=== PATIENT | female | born 1990 | race Caucasian/White ===

== ENCOUNTER 2018-03-02 18:07 | Outpatient (CLI) | payer MEDICAID ==
[~2018-03-02] VITALS: Ht 162.6 cm; Wt 67.7 kg
[2018-03-02 18:22] VITALS: BP 102/57; PULSE 141; TEMP 98.2
[2018-03-02 18:30] VITALS: BP 97/57; PULSE 129
[2018-03-02 19:00] VITALS: BP 128/73; PULSE 92
[2018-03-02 19:25] VITALS: BP 112/73; PULSE 100
== END 2018-03-02 19:45 | disposition home or self-care (01) ==
LOC: LDRO 18:07 → EDBD 18:07 → LDRO 19:45
DX: O62.9 Abnormality of forces of labor, unspecified (principal); Z3A.39 39 weeks gestation of pregnancy

== ENCOUNTER 2018-03-03 23:33 | Outpatient (CLI) | payer MEDICAID ==
[~2018-03-03] VITALS: Ht 162.6 cm; Wt 67.7 kg
[2018-03-04 00:12] VITALS: BP 119/67; PULSE 83; TEMP 98.2
[2018-03-04 00:15] VITALS: BP 119/67; PULSE 83; TEMP 98.2
[2018-03-04] MEDS ORDERED: PROAIR HFA0.09 MG/AC IH (17:29)
== END 2018-03-04 02:40 | disposition home or self-care (01) ==
LOC: LDRO 23:33
DX: O62.9 Abnormality of forces of labor, unspecified (principal); Z3A.39 39 weeks gestation of pregnancy

== ENCOUNTER 2018-03-04 16:50 | Inpatient (IN) | payer MEDICAID ==
[~2018-03-04] VITALS: Ht 162.6 cm; Wt 67.7 kg
[2018-03-04] VITALS (26 sets, daily range): BP systolic 97–124; BP diastolic 52–90; PULSE 74–118; TEMP 97.7–98.1
[2018-03-04] MEDS ORDERED: PROAIR HFA0.09 MG/AC IH (17:29)
[2018-03-04 17:57] LABS: BASO # 0.1 (0.0-0.2); BASO % 0.3 % (0.0-2.0); EOS # 0.4 (0.0-0.7); EOS % 2.4 % (0-4.0); GRAN # 14.1 (1.4-6.5); GRAN % 77.9 % (42.2-75.2); HEMOGLOBIN 10.2 g/dl (12.5-16.0); LYMPH # 2.6 (1.2-3.4); LYMPH % 14.2 % (20.0-51.0); MEAN CELL VOLUME 85 fl (80.0-100.0); MEAN CORPUSCULAR HEMOGLOBIN 28 pg (27.0-31.0); MEAN CORPUSCULAR HGB CONC 33 g/dl (33.0-37.0); MEAN PLATELET VOLUME 11.8 fl (7.4-10.4); MONO # 0.9 (0.1-0.6); MONO % 4.7 % (1.7-9.3); PLATELET COUNT 256 K/mm3 (130-400); RED BLOOD COUNT 3.64 M/mm3 (4.10-5.30); REDCELL DISTRIBUTION WIDTH-CV 15.9 % (11.5-14.5)
[2018-03-04 17:58] LABS: HEMATOCRIT 30.9 % (37.0-47.0)
[2018-03-05] VITALS (25 sets, daily range): BP systolic 89–124; BP diastolic 55–78; PULSE 76–115; TEMP 97.5–98.5
[2018-03-06 00:28] VITALS: BP 103/54; PULSE 91; TEMP 97.9
[2018-03-06 06:47] VITALS: BP 110/73; PULSE 88; TEMP 97.6
[2018-03-06] MEDS ORDERED: IBU600 MG PO (10:21)
[2018-03-06] MEDS ORDERED: PERCOCET 325 MG1 TA2 PO (10:21)
== END 2018-03-06 13:25 | disposition home or self-care (01) | DRG 807 ==
LOC: LDRO 16:50 → LDR 17:15 → OB 03-05 07:36
PROVIDERS: Obstetrics & Gynecology
PROC: 10E0XZZ Delivery of Products of Conception, External Approach (ICD-10-PCS; principal; 2018-03-04)
PROC: 0UQMXZZ Repair Vulva, External Approach (ICD-10-PCS; 2018-03-04)
PROC: 0W8NXZZ Division of Female Perineum, External Approach (ICD-10-PCS; 2018-03-04)
DX: O70.0 First degree perineal laceration during delivery (principal); Z37.0 Single live birth; Z3A.40 40 weeks gestation of pregnancy
CPT/HCPCS: J2540; J2590; J2795; J7120

== ENCOUNTER 2018-04-14 11:13 | Emergency (ER) | payer MEDICAID ==
[~2018-04-14] VITALS: Ht 162.6 cm; Wt 59.1 kg
[~2018-04-14 11:13] MED LIST: IBU600 MG PO; PERCOCET 325 MG1 TA2 PO; PROAIR HFA0.09 MG/AC IH
[2018-04-14 11:16] VITALS: BP 121/69; TEMP 98.3
[2018-04-14 11:24] LABS: COLLECTION METHOD CLEAN CATCH
[2018-04-14 11:32] LABS: MUCOUS Present /lpf; PH 6 (5-8); URINE APPEARANCE Cloudy; URINE BACTERIA None Seen /hpf; URINE BILIRUBIN Negative (NEGATIVE); URINE BLOOD Negative (NEGATIVE); URINE COLOR Yellow; URINE GLUCOSE Negative (NEGATIVE); URINE KETONE Negative (NEGATIVE); URINE LEUKOCYTE ESTERASE 2+ (NEGATIVE); URINE NITRATE Negative (NEGATIVE); URINE PROTEIN(semi-quant) 2+ (NEGATIVE)
[2018-04-14] MEDS ORDERED: ADDERALL10 MG PO (11:34)
[2018-04-14 11:46] LABS: HEMOGLOBIN 12.5 g/dl (12.5-16.0); MEAN CELL VOLUME 85 fl (80.0-100.0); MEAN CORPUSCULAR HEMOGLOBIN 28 pg (27.0-31.0); MEAN CORPUSCULAR HGB CONC 33 g/dl (33.0-37.0); MEAN PLATELET VOLUME 10.6 fl (7.4-10.4); PLATELET COUNT 258 K/mm3 (130-400); RED BLOOD COUNT 4.49 M/mm3 (4.10-5.30); REDCELL DISTRIBUTION WIDTH-CV 16.9 % (11.5-14.5)
[2018-04-14 11:58] LABS: BILIRUBIN,TOTAL 0.2 mg/dL (0.0-1.0); C-REACTIVE PROTEIN 0.6 mg/dL (0.0-0.9); CALCIUM 8.5 mg/dL (8.4-10.2); CREATININE, serum 0.7 mg/dL (0.52-1.25); POTASSIUM 4.2 mmol/L (3.4-5.0)
[2018-04-14] MEDS ORDERED: MACROBID 1100 MG/CAP PO (12:11)
[2018-04-14 12:15] VITALS: PULSE 86
[2018-04-14 12:18] LABS: BAND 1 % (0-10); EOSINOPHIL 1 % (0-4); LYMPHOCYTE 35 % (20.0-51.0); METAMYELOCYTE 2 % (0-0); NEUTROPHILS 60 % (42.0-75.2); PLATELET ESTIMATE NORMAL (NORMAL)
[2018-04-14 12:19] LABS: STOMATOCYTE 1+
== END 2018-04-14 12:15 | disposition home or self-care (01) ==
LOC: COL.ER 11:13
PROVIDERS: Family Medicine
DX: N30.90 Cystitis, unspecified without hematuria (principal)

== ENCOUNTER 2018-06-04 19:38 | Emergency (ER) | payer MEDICAID ==
[~2018-06-04] VITALS: Ht 162.6 cm; Wt 59.1 kg
[~2018-06-04 19:38] MED LIST changes: +ADDERALL10 MG PO; +MACROBID 1100 MG/CAP PO
[2018-06-04 19:40] VITALS: TEMP 97.7
[2018-06-04] MEDS ORDERED: OMNICEF 300MG300 MG PO (20:10)
[2018-06-04 20:11] LABS: COLLECTION METHOD CLEAN CATCH
[2018-06-04 20:16] LABS: BASO # 0.1 (0.0-0.2); BASO % 0.4 % (0.0-2.0); EOS # 0.1 (0.0-0.7); EOS % 0.6 % (0-4.0); GRAN # 8.3 (1.4-6.5); GRAN % 72.6 % (42.2-75.2); HEMOGLOBIN 11.2 g/dl (12.5-16.0); LYMPH # 1.8 (1.2-3.4); LYMPH % 15.9 % (20.0-51.0); MEAN CELL VOLUME 87 fl (80.0-100.0); MEAN CORPUSCULAR HEMOGLOBIN 28 pg (27.0-31.0); MEAN CORPUSCULAR HGB CONC 33 g/dl (33.0-37.0); MEAN PLATELET VOLUME 10.8 fl (7.4-10.4); MONO # 1.2 (0.1-0.6); MONO % 10.1 % (1.7-9.3); PLATELET COUNT 227 K/mm3 (130-400); RED BLOOD COUNT 3.95 M/mm3 (4.10-5.30); REDCELL DISTRIBUTION WIDTH-CV 15.1 % (11.5-14.5)
[2018-06-04 20:19] LABS: HEMATOCRIT 34.4 % (37.0-47.0)
[2018-06-04 20:21] LABS: MUCOUS Present /lpf; PH 5 (5-8); URINE APPEARANCE Turbid; URINE BACTERIA Occasional /hpf; URINE BILIRUBIN Negative (NEGATIVE); URINE BLOOD Negative (NEGATIVE); URINE COLOR Yellow; URINE GLUCOSE Negative (NEGATIVE); URINE KETONE Negative (NEGATIVE); URINE LEUKOCYTE ESTERASE 3+ (NEGATIVE); URINE NITRATE Positive (NEGATIVE); URINE PROTEIN(semi-quant) 2+ (NEGATIVE); URINE UROBILINOGEN Negative (NEGATIVE)
[2018-06-04 20:32] LABS: BILIRUBIN,TOTAL 0.6 mg/dL (0.0-1.0); CALCIUM 8.3 mg/dL (8.4-10.2); CREATININE, serum 0.88 mg/dL (0.52-1.25); POTASSIUM 3.5 mmol/L (3.4-5.0); TOTAL PROTEIN 7.2 gm/dL (6.4-8.2)
[2018-06-04 20:59] VITALS: BP 94/62; PULSE 89
== END 2018-06-04 21:00 | disposition home or self-care (01) ==
LOC: COL.ER 19:38
PROVIDERS: Emergency Medicine
DX: N12 Tubulo-interstitial nephritis, not specified as acute or chronic (principal); F90.9 Attention-deficit hyperactivity disorder, unspecified type; F17.210 Nicotine dependence, cigarettes, uncomplicated; J45.909 Unspecified asthma, uncomplicated
CPT/HCPCS: A4216; J0696

== ENCOUNTER 2019-02-10 16:00 | Outpatient (RCR) | payer MEDICAID ==
[2019-02-03 15:18] VITALS: BP 114/76; PULSE 105; TEMP 97.8
[2019-02-03 17:19] VITALS: BP 120/76; PULSE 91
[2019-02-05 09:52] VITALS: BP 95/48; PULSE 90; TEMP 97.9
[~2019-02-10] VITALS: Ht 162.6 cm; Wt 66.0 kg
[~2019-02-10 16:00] MED LIST changes: +OMNICEF 300MG300 MG PO
[2019-02-10 17:00] VITALS: BP 101/52; PULSE 88; TEMP 98
== END 2019-02-10 17:40 | disposition home or self-care (01) ==
LOC: EUO 16:00
DX: Z79.899 Other long term (current) drug therapy (principal)
CPT/HCPCS: J2916; J7050

== ENCOUNTER → 2019-03-21 | Outpatient (CLI) | payer MEDICAID ==
[~2019-03-21] VITALS: Ht 162.6 cm; Wt 65.9 kg
--- NOTE | 2019-03-21 14:50 | NUR ---
PATIENT HERE FOR LABOR CHECK. PATIENT STATES SHE FEELS LIKE SHE IS HAVING LEAKING OF FLUID. PATIENT IN GOWN, PATIENT ON EFM, VITAL SIGNS OBTAINED, SVE 0-1 THICK ,POSTERIOR. PATIENT DENIES CONTRACTIONS OR BLEEDING.
[2019-03-21 15:29] VITALS: BP 108/66; PULSE 96; TEMP 97.7
[2019-03-21 15:30] VITALS: BP 108/66; PULSE 96; TEMP 97.7
[2019-03-21 16:00] VITALS: BP 97/61; PULSE 89
[2019-03-21 16:15] VITALS: BP 98/57; PULSE 80
== END ==
LOC: LDRO 15:06
DX: O42.913 Preterm premature rupture of membranes, unspecified as to length of time between rupture and onset of labor, third trimester (principal); Z3A.35 35 weeks gestation of pregnancy

== ENCOUNTER 2019-04-16 17:26 | Inpatient (IN) | payer MEDICAID ==
[2019-04-16] VITALS (22 sets, daily range): BP systolic 93–120; BP diastolic 51–79; PULSE 76–122; TEMP 97.4–98.3
[~2019-04-16] VITALS: Ht 162.6 cm; Wt 70.5 kg
--- NOTE | 2019-04-16 17:27 | NUR ---
1727-G2L1 39.[address] Garvey ambulatory to LR3. Patient reports sharp pain since am in upper abdomen irregularly. Denies LOF, reports light pink discharge since membarnes swept in office last visit. Reports some contractions last night but stopped. Dr. Hidalgo on unit. updated MD. Assessment complete. FHR reactive. VSS. MD orders to admit patient and start PEN for GBS + Protocol. 5-IV to right forearm, blood collected and sent to lab. LR infusing per orders 1800-Avis started, see EMAR. 1751-SVE by Dr. Hidalgo /2, AROM clear fluid. 1830-Reported off to. JHON Berry who assumes care of patient.
[2019-04-16 19:48] LABS: BASO # 0.1 (0.0-0.2); BASO % 0.4 % (0.0-2.0); EOS # 0.3 (0.0-0.7); EOS % 2.6 % (0-4.0); GRAN # 7.8 (1.4-6.5); GRAN % 70.4 % (42.2-75.2); HEMATOCRIT 34.3 % (37.0-47.0); HEMOGLOBIN 11.4 g/dl (12.5-16.0); LYMPH # 2.3 (1.2-3.4); LYMPH % 20.8 % (20.0-51.0); MEAN CELL VOLUME 89 fl (80.0-100.0); MEAN CORPUSCULAR HEMOGLOBIN 30 pg (27.0-31.0); MEAN CORPUSCULAR HGB CONC 33 g/dl (33.0-37.0); MEAN PLATELET VOLUME 11.7 fl (7.4-10.4); MONO # 0.6 (0.1-0.6); MONO % 5.4 % (1.7-9.3); PLATELET COUNT 215 K/mm3 (130-400); RED BLOOD COUNT 3.84 M/mm3 (4.10-5.30); REDCELL DISTRIBUTION WIDTH-CV 17.3 % (11.5-14.5)
[2019-04-16] MEDS ORDERED: MOTRIN 800800 MG/TAB PO (19:55)
--- NOTE | 2019-04-16 22:25 | NUR ---
2225- SVE 10CM PER DR. SAMUEL AT THIS TIME 2230- PATIENT IN LITHOTOMY AT THIS TIME, INSTRUCTED ON PUSHING. INTIATIAL PUSH COMPLDTED. VARIABLE DECELERAIONS WHILE PUSHING O2 10L VIA FACE MASK GIVEN, WITH IV FLUID BOLUS. PITOCIN TURNED OFF. DR. SAMUEL PRESENT AT BEDSIDE PUSHING WITH PATIENT. 224- CHARGE NURSE CALLED TO BEDSIDE FOR POTENTIAL SHOULDER DYSTOCIA. ARRIVED SOON AFTER. 224- SPONTANEOUS DELIVERY OF FATAL HEAD. TIGHT NUCHAL X1, CLAMPED AND CUT PER DR. SAMUEL DIANA PERINEUM. NO SHOULDER. 224- SPONTANEOUS DELIVERY OF VIABLE MALE AT THIS TIME. PLACED ON PATIENT'S CHEST, DRIED AND STIMULATED BY NURSERY NURSE Alphonse PENA RN. PINK AND CRYING. 2247- SPONTANEOUS DELIVERY OF INTACT PLACENTA, PITOCIN RAN AT 333CC/HR AT THIS TIME. 2249- 1ST DEGREE LACERATION REPAIRED PER DR. SAMUEL ALONG WITH SMALL 1.5CM VAGINAL CYST. RECONVERY STARTED. NO COMPLICATIONS. EBL 300CC. APGARS 8,9,9. EPIDURAL SHUT OFF. HUSAM FARFAN CALLED.
[2019-04-17] VITALS (7 sets, daily range): BP systolic 94–120; BP diastolic 55–76; PULSE 78–96; TEMP 97.7–98.4
[2019-04-17] MEDS ORDERED: MOTRIN 800800 MG/TAB PO (21:19)
[2019-04-17] MEDS ORDERED: PERCOCET 325 MG1 TA2 PO (21:20)
[2019-04-18 02:00] VITALS: BP 109/68; PULSE 79; TEMP 98.7
[2019-04-18 07:20] VITALS: BP 95/69; PULSE 71; TEMP 97.8
[2019-04-18] MEDS ORDERED: PERCOCET 325 MG1 TA2 PO (10:08)
[2019-04-18] MEDS ORDERED: ADDERALL10 MG PO (10:09)
== END 2019-04-18 10:25 | disposition home or self-care (01) | DRG 768 ==
LOC: LDRO 17:26 → OB 17:30 → LDR 17:30 → OB 04-17 01:00
PROVIDERS: ADMIT Obstetrics & Gynecology
PROC: 10E0XZZ Delivery of Products of Conception, External Approach (ICD-10-PCS; principal; 2019-04-16)
PROC: 0UBKXZZ Excision of Hymen, External Approach (ICD-10-PCS; 2019-04-16)
PROC: 0HQ9XZZ Repair Perineum Skin, External Approach (ICD-10-PCS; 2019-04-16)
PROC: 10907ZC Drainage of Amniotic Fluid, Therapeutic from Products of Conception, Via Natural or Artificial Opening (ICD-10-PCS; 2019-04-16)
DX: O99.62 Diseases of the digestive system complicating childbirth (principal); Z37.0 Single live birth; K92.9 Disease of digestive system, unspecified; O99.52 Diseases of the respiratory system complicating childbirth; O99.344 Other mental disorders complicating childbirth; O99.824 Streptococcus B carrier state complicating childbirth; K21.9 Gastro-esophageal reflux disease without esophagitis; J45.909 Unspecified asthma, uncomplicated; F41.9 Anxiety disorder, unspecified; F32.9 Major depressive disorder, single episode, unspecified; O99.334 Smoking (tobacco) complicating childbirth; O99.02 Anemia complicating childbirth; O69.1XX0 Labor and delivery complicated by cord around neck, with compression, not applicable or unspecified; N89.8 Other specified noninflammatory disorders of vagina; D64.9 Anemia, unspecified; Z3A.39 39 weeks gestation of pregnancy; O70.0 First degree perineal laceration during delivery
CPT/HCPCS: J2540; J2590; J2795; J7120

== ENCOUNTER 2019-06-07 17:10 | Emergency (ER) | payer MEDICAID ==
[~2019-06-07] VITALS: Ht 162.6 cm; Wt 56.8 kg
[~2019-06-07 17:10] MED LIST changes: +MOTRIN 800800 MG/TAB PO
[2019-06-07 17:58] LABS: BASO # 0.1 (0.0-0.2); BASO % 0.7 % (0.0-2.0); EOS # 0.3 (0.0-0.7); EOS % 4.2 % (0-4.0); GRAN # 4.3 (1.4-6.5); GRAN % 55.7 % (42.2-75.2); HEMATOCRIT 38.3 % (37.0-47.0); HEMOGLOBIN 12.5 g/dl (12.5-16.0); LYMPH # 2.6 (1.2-3.4); LYMPH % 34.4 % (20.0-51.0); MEAN CELL VOLUME 92 fl (80.0-100.0); MEAN CORPUSCULAR HEMOGLOBIN 30 pg (27.0-31.0); MEAN CORPUSCULAR HGB CONC 33 g/dl (33.0-37.0); MEAN PLATELET VOLUME 9.8 fl (7.4-10.4); MONO # 0.4 (0.1-0.6); MONO % 4.7 % (1.7-9.3); PLATELET COUNT 295 K/mm3 (130-400); RED BLOOD COUNT 4.16 M/mm3 (4.10-5.30); REDCELL DISTRIBUTION WIDTH-CV 13.8 % (11.5-14.5)
[2019-06-07 18:09] LABS: ALBUMIN 4.3 gm/dL (3.5-5.0); BILIRUBIN,TOTAL 0.7 mg/dL (0.0-1.0); CALCIUM 8.3 mg/dL (8.4-10.2); CREATININE, serum 0.78 (0.52-1.25); POTASSIUM 4.3 mmol/L (3.4-5.0); TOTAL PROTEIN 7.3 gm/dL (6.4-8.2)
[2019-06-07 19:31] LABS: COLLECTION METHOD CLEAN CATCH
[2019-06-07 19:51] LABS: MUCOUS Present /lpf; PH 6 (5-8); URINE APPEARANCE Hazy; URINE BACTERIA Rare /hpf; URINE BILIRUBIN Negative (NEGATIVE); URINE BLOOD Negative (NEGATIVE); URINE COLOR Yellow; URINE GLUCOSE Negative (NEGATIVE); URINE KETONE Negative (NEGATIVE); URINE LEUKOCYTE ESTERASE Trace (NEGATIVE); URINE NITRATE Negative (NEGATIVE); URINE PROTEIN(semi-quant) Negative (NEGATIVE); URINE UROBILINOGEN Negative (NEGATIVE)
[2019-06-07 20:02] LABS: MONOSCREEN NEGATIVE
[2019-06-07] MEDS ORDERED: CEPHALEXIN500 M1 PO (20:29)
[2019-06-07 20:40] VITALS: BP 94/75; PULSE 69; TEMP 97.4
== END 2019-06-07 20:42 | disposition home or self-care (01) ==
LOC: COL.ER 17:10
PROVIDERS: Emergency Medicine
DX: N39.0 Urinary tract infection, site not specified (principal); R42 Dizziness and giddiness; R53.81 Other malaise; Z79.1 Long term (current) use of non-steroidal anti-inflammatories (NSAID)